=== PATIENT | female | born 1995 | race Two or more races ===

== ENCOUNTER 2024-11-12 03:01 | Emergency (ER) | payer MEDICAID, OTHER ==
[~2024-11-12] VITALS: Ht 165.1 cm; Wt 96.4 kg
[2024-11-12 03:03] VITALS: BP 153/93; PULSE 61; RESP 20; TEMP 97.9; O2SAT 97
--- NOTE | 2024-11-12 03:38 | ED.PDOC ---
History of Present Illness HPI Comments 29-year-old female who came to ER due to worening shortness of breath. Patient is a approximately 7 months . She does have history of GERD. States for the past 3 days, she has been experiencing leg swelling, runny nose, cough, throat and chest discomfort and shortness of breath. She reports s hortness of breath, difficulty taking a deep breath has been ongoing for several weeks. Noted symptoms worsens during supine position. Yesterday, symptoms persisted, now associated with bilateral lower extremity swelling. Patient denies any abdominal pain or vaginal bleeding. Patient is saturating 97% on room air. REVIEW OF SYSTEMS: General: No fever, no chills, or fatigue HEENT: (+) sore throat, no earache, (+) congestion, no neck pain. Cardiac: No chest pain. No palpitations. Lungs: (+) shortness of breath, (+) cough. GI: No nausea, no vomiting, no diarrhea, no constipation, no abdominal pain : No dysuria, frequency, or urgency. No hematuria. Musculoskeletal: No joint pain , no joint swelling, no extremity edema. Skin: No rash, no itching. Neuro: No headache, no dizziness, no weakness PHYSICAL EXAM: General: Awake, alert and oriented. No acute distress. Skin: Skin in warm, dry and intact. Appropriate color for ethnicity. HEENT: The head is normocephalic and atraumatic. Conjunctivae are clear without exudates or hemorrhage. Sclera is non-icteric. EOM are intact. No signs of nystagmus. Eyelids are normal in appearance without swelling or lesions. Oral mucosa is pink and moist Neck: The neck is supple with normal range of motion. No JVD. Cardiac: Heart rate and rhythm are normal. No murmurs, gallops, or rubs are auscultated. Respiratory: No signs of respiratory distress. Lung sounds are clear in all lobes bilaterally without rales, rhonchi, or wheezes. Abdominal: Abdomen is gravid Extremities: Upper and lower extremities are atraumatic in appearance without deformity or edema. Neurological: The patient is awake, alert and oriented to person, place, and time with normal speech. Speech is clear. There is no facial asymmetry. Normal gait Psychiatric: Appropriate mood and affect. Good judgement and insight. Chief Complaint: Shortness of Breath Time Seen by MD: 03:37 Allergies: Coded Allergies: NO KNOWN ALLERGIES (Unverified , 11/12/24) Information Source: Patient Mode of Arrival: Ambulatory Severity: Moderate Timing: Hours Duration: Intermittent Past Medical History PAST MEDICAL HISTORY: GERD Surgical History: Denies all surgeries 1 Para 0 Family History Family History: Reviewed,noncontributory to illness Social History Smoker: Non-Smoker Alcohol: Denies ETOH Use Drugs: Denies Drug Use Lives In: Home Was a procedure done? Was a procedure done?: No Differential Dx Considerations may include: Differential diagnoses considered includebut arenot limited to acute Bronc hitis, Asthma, COPD, Pneumothorax, PE, CHF, Pulmonary HTN, Anemia, CO Poisoning, Methemoglobinemia, Hyperventilation, Metabolic Acidosis, Pulmonary Edema, Pneumonia, ACS, Pericardial Tamponade, Anxiety, other X-Ray, Labs, Meds, VS Vital Signs Date Time Temp Pulse Resp B/P (MAP) Pulse Ox O2 Delivery O2 Flow Rate FiO2 11/12/24 03:03 97.9 61 20 153/93 97 97.9 Time of 1ST Reevaluation: 03:33 Reevaluation 1ST: Unchanged Patient Education/Counseling: Need For Follow Up Family Education/Counseling: Need For Follow Up SEPSIS Sepsis Screen Date sepsis recognized/suspect: Nov 12, 2024 Time Sepsis recognized/suspect: 0308 Recent Procedure: No On Antibiotic Therapy: No Respiratory Rate >20: No Heart Rate >90: No Temp<36 C (96.8 F) or >38.3 C: No SBP <90 or MAP <65 mmHG: No New Acute Mental Status Change: No Is the patient on CPAP, BIPAP,: No Vital Signs Date Time Temp Pulse Resp B/P (MAP) Pulse Ox O2 Delivery O2 Flow Rate FiO2 11/12/24 03:03 97.9 61 20 153/93 97 97.9 Departure 1 Departure Time of Disposition: 03:58 Impression: Primary Impression: Shortness of breath Additional Impression: Left against medical advice Disposition: 07 LEFT AGAINST MEDICAL ADVICE Condition: Other Comments MDM: Discussed with patient plan for testing for possible serious etiology of her symptoms and heart tones. At this time patient states she does not want to wait for further testing, she will return if symptoms worsen. Despite our efforts, patient has decided to leave against medical advice. The patient has a normal mental status and full decisional capacity. Patient has been informed of the benefits of staying such as further diagnosis and treatment of possible serious etiology of the symptoms, and the risks of leaving such as , chronic pain, permanent disability or other serious adverse events which might be attributed to leaving. The patient displays clear understanding of these benefits and risks and chooses to leave. The patient is been informed also that they may return here at any time if they change their mind or need to further concerns or questions has been referred to their local medical physician for follow up JOSÉ. Critical Care Note Critical Care Time?: No Stability Stability form required: No Heart Score Heart Score: Heart Score Response (Comments) Value History N/A 0 EKG N/A 0 Age N/A 0 Risk Factors N/A 0 Troponin N/A 0 Total 0 I personally scribed for TIM NOLAN MD ([email or web address]) on 11/12/24 at 03:38. Electronically submitted by Dawood Borjas ([email or web address]). TIM NOLAN MD Nov 12, 2024 03:38
== END 2024-11-12 03:27 | disposition left against medical advice (07) ==
LOC: ER 03:01
DX: O26.893 Other specified pregnancy related conditions, third trimester (principal); K21.9 Gastro-esophageal reflux disease without esophagitis; Z3A.30 30 weeks gestation of pregnancy

== ENCOUNTER 2024-11-16 11:19 | Emergency (ER) | payer MEDICAID ==
[~2024-11-16] VITALS: Ht 157.5 cm; Wt 113.6 kg
--- NOTE | 2024-11-16 11:28 | ED.PDOC ---
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 Per EMS, patient had a witnessed seizure by her boyfriend while at home that boyfriend described as Tonic-Clonic and lasting approximately 3 minutes. Patient has no history of seizures according to boyfriend. Patient is alert, but altered according to EMS. Patient is also 7 months , . Patient does have some oral trauma and had incontinence with one episode of vomiting. Patient was also hypertensive at 170 systolic. Otherwise no fall or trauma reported PMHx: GERD PSHx: None HPI: Poor Historian. REVIEW OF SYSTEMS: CONSTITUTIONAL: Denies acute: fever, diaphoresis, chills, HEAD: Denies acute: photophobia Eyes: Denies acute: Double vision, vision loss, eye pain, eye discharge. EARS: Denies acute: tinnitus, hearing loss, ear discharge, ear pain, THROAT: Denies acute: sore throat, swelling, difficulty swallowing , pain with swallowi ng, change in voice. NECK: Denies acute: neck pain, neck swelling, stiff neck. HEART: Denies acute : chest pain, palpitations, LUNGS: Denies acute: SOB, wheezing, cough, hemoptysis ABDOMEN: Denies acute: abdominal pain, diarrhea, melena , hematemesis, hematochezia SKIN: Denies acute: rash, redness, lesions, itchiness. EXTREMITIES: Denies acute: calf pain, numbness, tingling, weakness, denies pain in extremity. Denies acute: Low back pain. Neuro: Denies acute: focal neurological deficit, motor or sensory focal neurological deficit, tremors, , dizziness, change in mental status, loss of bowel or bladder function, cauda equina like symptoms. : Denies acute: dysuria, hematuria, flank pain, increase in urinary frequency. PSYCH: Denies acute: hallucination, suicidal ideation, homicidal ideation. FEMALE: Denies acute: abnormal vaginal bleeding, foul odor, unusual discharge. PHYSICAL EXAM: General: ----[id number]----acute distress, awake and alert. Head: normocephalic, atraumatic. Neck: supple, trachea is midline, no swelling. Throat: Normal phonation. Eyes:, no erythema, no purulent discharge, no proptosis, no icterus. Heart: regular rate, regular rhythm, no significant murmur appreciated. Lungs: no apparent respiratory distress, Able to speak in full sentences. No wheezing, no rhonchi, no crackles. No stridors Clear to auscultation bilaterally. Abdomen: non tender to palpation, non distended, soft, no guarding, no rebound, + bowel sounds. Neuro: Awake, Alert, oriented to name, self, situation, follows commands GCS=15. Speech is normal. Skin: no petechia, no purpura, no cyanosis, non-pale, not jaundice. Lower extremities: --no - Pitting edema no deformity, no focal swelling, no calf TTP. Makes eye contact. moves all four extremities. Face: no apparent facial droop. PERRLA, EOM-I CN 2-12 are grossly intact, No nystagmus. No nuchal rigidity, Kernig's sign, Brudzinski's sign, no meningeal signs. ED COURSE: DISCLAIMER: This medical document was created using an electronic medical record system with voice recognition software and computerized dictation system. Although this document has been carefully reviewed, there might still be some phonetic and typographical errors. Occasional wrong-word or "sound-alike" substitutions may have occurred due to the inherent limitations of voice recognition software. These areas are purely typographical due to imperfections of the software programs and do not reflect any compromise in the patient's medical care. Please read the chart carefully and recognize, using context, where these substitutions have occurred. Time Seen by MD: 11:20 Reviewed Notes: Data Systems Analyst Notes, Medications, Allergies Allergies: Coded Allergies: NO KNOWN ALLERGIES (Unverified , 11/12/24) Information Source: Patient, Emergency Med Personnel Past Medical History PAST MEDICAL HISTORY: GERD Surgical History: Denies all surgeries Family History Family History: Reviewed,noncontributory to illness Social History Smoker: Non-Smoker Alcohol: Denies ETOH Use Drugs: Denies Drug Use Lives In: Home Was a procedure done? 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 In the particular setting of this patient, eclampsia, preeclampsia, intracranial mass, sepsis,), N/A X-Ray, Labs, Meds, VS Vital Signs Date Time Temp Pulse Resp B/P (MAP) Pulse Ox O2 Delivery O2 Flow Rate FiO2 11/16/24 13:14 98.0 71 16 130/88 (102) 98 98.0 11/16/24 13:13 74 11/16/24 12:00 Room Air* 0 21 11/16/24 12:00 71 17 161/99 (119) 97 11/16/24 11:47 161/99 11/16/24 11:23 98.8 76 18 170/68 99 98.8 Lab Test 11/16/24 13:15 11/16/24 12:05 Range/Units Urine Color Yellow Yellow Urine Clarity Turbid H Clear Urine pH 6.5 5.0-9.0 Urine Specific Lolo 1.044 H 1.001-1.035 Urine Protein 3+ H Negative Urine Ketones 1+ H Negative Urine Blood 2+ H Negative /uL Urine Nitrite Negative Negative Urine Bilirubin Negative Negative Urine Urobilinogen Normal Negative mg/dL Urine Leukocyte Esterase Negative Negative /uL Urine RBC 19 0 - 4 /hpf Urine Microscopic WBC 11 H 0-5 /HPF Urine Squamous Epithelial Cells Few <5 /hpf Urine Bacteria None seen None Seen /hpf Urine Mucus Few None Seen Urine Creatinine 225.93 H 30.0-125.0 mg/dL Urine Protein/Creatinine Ratio 11.07 Urine Glucose Normal Normal mg/dL Urine Total Protein > 2500.0 H 1-14 mg/dL Urine Opiates Screen Neg NEGATIVE Urine Fentanyl Screen Neg NEGATIVE Urine Barbiturates Screen Neg NEGATIVE Urine Phencyclidine Screen Neg NEGATIVE Urine Amphetamines Screen Neg NEGATIVE Urine Benzodiazepines Screen Neg NEGATIVE Urine Cocaine Screen Neg NEGATIVE Urine Cannabinoids Screen Neg NEGATIVE White Blood Count 9.5 4.4-10.8 10^3/uL Red Blood Count 4.38 4.0-5.20 10^6/uL Hemoglobin 13.0 12.2-16.2 g/dL Hematocrit 37.5 36.0-46.0 % Mean Corpuscular Volume 85.5 80.0-100.0 fL Mean Corpuscular Hemoglobin 29.8 28.0-32.0 pg Mean Corpuscular Hemoglobin Concent 34.8 32.0-36.0 g/dL Red Cell Distribution Width 13.2 11.8-14.3 % Platelet Count 190 140-450 10^3/uL Mean Platelet Volume 9.3 6.9-10.8 fL Neutrophils (%) (Auto) 87.2 H 37.0-80.0 % Lymphocytes (%) (Auto) 8.3 L 10.0-50.0 % Monocytes (%) (Auto) 4.2 0.0-12.0 % Eosinophils (%) (Auto) 0.2 0.0-7.0 % Basophils (%) (Auto) 0.1 0.0-2.0 % Neutrophils # (Auto) 8.3 1.6-8.6 10 ^3/uL Lymphocytes # (Auto) 0.8 0.4-5.4 10 ^3/uL Monocytes # (Auto) 0.4 0-1.3 10 ^3/uL Eosinophils # (Auto) 0 0-0.8 10 ^3/uL Basophils # (Auto) 0 0-0.2 10 ^3/uL Nucleated Red Blood Cells 0.0 % Prothrombin Time 10.0 9.3-11.8 sec Prothrombin Time INR 0.94 0.9-1.15 Activated Partial Thromboplast Time 24.8 24.5-34.5 SEC Fibrinogen 671 H 177-375 mg/dL D-Dimer, Quantitative 1.50 H 0.0-0.49 mg/L FEU Sodium Level 139 136-145 mmol/L Potassium Level 4.0 3.5-5.1 mmol/L Chloride Level 108 H 98-107 mmol/L Carbon Dioxide Level 20 20-31 mmol/L Anion Gap 11 5-15 Blood Urea Nitrogen 7 L 9-23 mg/dL Creatinine 0.81 0.550-1.02 mg/dL Glomerular Filtration Rate Calc 102 >90 mL/min BUN/Creatinine Ratio 8.6 L 10.0-20.0 Serum Glucose 84 74-106 mg/dL Lactic Acid Level 2.4 *H 0.4-2.0 mmol/L Uric Acid 8.1 H 3.1-7.8 mg/dL Calcium Level 8.9 8.7-10.4 mg/dL Magnesium Level 2.0 1.6-2.6 mg/dL Total Bilirubin 0.2 0.2-1.0 mg/dL Aspartate Amino Transferase (AST) 27 13-40 U/L Alanine Aminotransferase (ALT) 24 7-40 U/L Alkaline Phosphatase 102 46-116 U/L Lactate Dehydrogenase 229 120-246 U/L Troponin I High Sensitivity 17 </=34 ng/L Total Protein 5.6 L 5.7-8.2 g/dL Albumin 3.3 3.2-4.8 g/dL Beta HCG, Quantitative 46788.7 H 1.5-4.2 mIU/mL [place] [id number] Ph: [phone] DIAGNOSTIC IMAGING Diagnostic Imaging Report : [id number] Signed PATIENT: CELESTE SPAIN ACCT: [id number] UNIT: [id number] : 1995 LOC: ER ROOM / BED: / AGE / SEX: 29 / F ADM STATUS: REG ER SERVICE 1212 ORDERING PHYSICIAN: JAROD FISCHER CNM PROCEDURE(s): OBUS - OB ULTRASOUND COMP GTR 14 WKS REASON: eclampsia ORDER NUMBER(s): [id number], ACCESSION NUMBER(s): [id number] LIMITED OB ULTRASOUND > 14 WKS: HISTORY: eclampsia TECHNIQUE: Multiple real-time grayscale images of the gravid uterus with duplex Doppler color flow and M-mode spectral analysis. TRANSDUCER: Transabdominal COMPARISON: None FINDINGS: IUP single live fetus at 28 weeks and 3 days based on composite averages of the BPD, head circumference, abdominal circumference and femur length Estimated weight 1106 grams heart rate 138 beats per minute JEAN PAUL is subjectively within normal limits. Deepest pocket measures 6.4 cm. Cervix is closed and measures 3.4 cm. Cephalic Presentation AnteriorPlacenta without previa or abruption. IMPRESSION: IUP single live fetus at 28 weeks and 3 days AUA corresponding to an JAYLON of 02/05/2025 ATED BY: ABIODUN ARREAGA MD DICTATED DATE/TIME: 11/16/24 1322 SIGNED BY: ABIODUN ARREAGA MD SIGNED DATE/TIME: 11/16/24 1322 CC: Time of 1ST Reevaluation: 12:07 (Case discussed with the OB Gyne doctor on-call at this time. They said they are coming to evaluate the patient immediately. Dr. Thapa. ) Reevaluation 1ST: Unchanged Time of 2ND Reevaluation: 12:34 (The [facility]ne team came and evaluated the patient at bedside. They recommend transfer the patient to higher level of care since we do not have any NICU. They also ordered a bunch of test and orders. Please see their consultation notes. Dr. Colindres case was discussed with the ER team at higher level of care at [facility] (HPI, physical exam, labs and diagnostic tests that were available at the time of disposition, ED course, treatment plan) on the phone. They agreed to accept the patient to their service --- Francois. ) Patient Education/Counseling: Diagnosis, Treatment Family Education/Counseling: No Family Present Comments MDM: patient presented with the above HPI.-hypertensive headache new onset seizure eclampsia-----workup was initiated. patient was found with the above mentioned diagnosis. Patient was evaluated immediately upon arrival. the following medications were ordered: please refer to order lists of meds and tests obtained by myself Dr. Gagnon. Patient ED course and VS have been stabilized. Patient has been reassessed in the ED and remained in a stable condition. Pertinent incidental findings were discussed with the patient and/or family. Patient/family voices understanding and is agreeable with plan. Patient has been observed in the ED adequate length of time to insure improvement/stability. OB Gyne was consulted immediately. They came to bedside. Please see their consultation notes. They recommended transfer the patient to higher level of care. Almost all the labs and ultrasound were not available at the time of transfer the patient by [facility] air flight to [facility]. Patient was transferred prior to obtaining CT scan of the head so we do not cause any delay of care. We do not have a NICU in our facility. Patient was transferred with a magnesium drip on board running during the flight. Escalation of care considered: Consideration of escalation to observation or admission All the reports of any imaging studies that were ordered by myself were reviewed by myself. Departure 1 Departure Time of Disposition: 12:12 Impression: Primary Impression: Eclampsia Disposition: 02 SHORT TERM HOSPITAL Admit to: Tele Condition: Critical Discharged With: Self Critical Care Note Critical Care Time?: Yes (1 hr-critical care time only) I personally scribed for ARMAAN GAGNON DO ([email or web address]) on 11/16/24 at 11:28. Electronically submitted by Florentin Martínez ([email or web address]). ARMAAN GAGNON DO Nov 16, 2024 11:28
[2024-11-16] MEDS ORDERED: MAGNESIUM SULFATE 1GM/100ML 100 ML IV ONE (11:30)
[2024-11-16] MEDS: ONDANSETRON HCL 4 MG/2 ML VIAL IV ONE (11:46)
[2024-11-16] MEDS: hydrALAZINE HCL 20 MG/ML VL IV PRN (11:47)
[2024-11-16] MEDS: MAGNESIUM SULFATE 1GM/100ML 100 ML IV ONE (11:47)
[2024-11-16] MEDS ORDERED: MAGNESIUM SULFATE 100 ML IV ONE (12:15)
[2024-11-16] MEDS ORDERED: MAGNESIUM SULFATE 40MG/ML 1,000 ML IV SCH (12:15)
[2024-11-16] MEDS ORDERED: BETAMETHASONE ACET (30mg/5ml) 5ml Vial 6mg/ml IM ONE (12:15)
[2024-11-16] MEDS ORDERED: LACTATED RINGER'S 1,000 ML IV SCH (12:15)
[2024-11-16 12:44] LABS: Hematocrit 37.5 % (36.0-46.0); Hemoglobin 13.0 g/dL (12.2-16.2); Mean Corpuscular Hemoglobin 29.8 pg (28.0-32.0); Mean Corpuscular Volume 85.5 fL (80.0-100.0); Nucleated Red Blood Cells % 0.0 %
[2024-11-16 12:56] LABS: Alanine Aminotransferase 24 U/L (7-40); Albumin 3.3 g/dL (3.2-4.8); Alkaline Phosphatase 102 U/L (46-116); Anion Gap 11 (5-15); BUN/Creatinine Ratio 8.6 (10.0-20.0); Calcium 8.9 mg/dL (8.7-10.4); Carbon Dioxide 20 mmol/L (20-31); Glucose 84 mg/dL (74-106); Magnesium 2.0 mg/dL (1.6-2.6); Potassium 4.0 mmol/L (3.5-5.1); Sodium 139 mmol/L (136-145)
[2024-11-16 12:57] LABS: Blood Urea Nitrogen 7 mg/dL (9-23); Chloride 108 mmol/L (98-107); INR 0.94 (0.9-1.15); Partial Thromboplastin Time 24.8 SEC (24.5-34.5); Prothrombin Time 10.0 sec (9.3-11.8)
[2024-11-16 12:58] LABS: Bilirubin, Total 0.2 mg/dL (0.2-1.0); Total Protein 5.6 g/dL (5.7-8.2)
[2024-11-16 13:02] LABS: Lactic Acid w/Reflex 2.4 mmol/L (0.4-2.0)
[2024-11-16 13:14] VITALS: BP 130/88; PULSE 71; RESP 16; TEMP 98; O2SAT 98
--- NOTE | 2024-11-16 13:25 | DVH ---
LIMITED OB ULTRASOUND > 14 WKS: HISTORY: eclampsia TECHNIQUE: Multiple real-time grayscale images of the gravid uterus with duplex Doppler color flow an d M-mode spectral analysis. TRANSDUCER: Transabdominal COMPARISON: None FINDINGS: IUP single live fetus at 28 weeks and 3 days based on composite averages of the BPD, head circumferen ce, abdominal circumference and femur length Estimated weight 1106 grams heart rate 138 beats per minute JEAN PAUL is subjectively within normal limits. Deepest pocket measures 6.4 cm. Cervix is closed and measures 3.4 cm. Cephalic Presentation AnteriorPlacenta without previa or abruption. IMPRESSION: IUP single live fetus at 28 weeks and 3 days AUA corresponding to an JAYLON of 02/05/2025
[2024-11-16 15:03] LABS: Urine Protein, UAD 3+ (Negative)
--- NOTE | 2024-11-16 15:18 | DVHINCON2 ---
Date of service: Nov 16, 2024 Referring Physician er physician Reason for Consultation eclampsia History of Present Illness pt presents to er with a hx of 2min tonic clonic seizure per boy friend. she has care [facility] and denies having any ob problems ,she is with edc of 10-31 approx 28wks preg .she denies any vag bleeding or rom. ob sono in er reveals vx,single gest with adeq fld and 1080 grams in efw.pt is alert and appropriate at the time of this consultation answering questions approp.pt was started on mg and given hydralzine x2 her cbc is normal ,cmp and upc are pending.dr darnell contacted [facility] and got acceptance to transfer pt while dr schwab wanted all labs back before accepting the transfer.pt and express desire to be transferred to [facility] Past Medical History none Past Surgical History none Family History na Social History primgravid Allergies: Coded Allergies: NO KNOWN ALLERGIES (Unverified , 11/12/24) Current Medications Current Medications Medications (Trade) Dose Ordered Sig/Hailey Route PRN Reason Start Time Stop Time Status Last Admin Hydralazine HCl (Apresoline Injection) 5 mg Q20MP PRN IV SBP>160 or DBP>105 11/16/24 11:45 11/16/24 11:47 Lactated Ringer's 1,000 ml @ 75 mls/hr [id number] IV 11/16/24 12:15 Magnesium Sulfate 1,000 ml @ 50 mls/hr Q20H IV 11/16/24 12:15 Review of Systems Constitutional: no fever, chill, weight loss HEENT: no eye pain, no hearing loss, no oral lesion, no scleral icterus Heart: no chest pain, no chest pressure Lung: no cough, no dyspnea with exertion Abdomen: see HPI : no pain with urination, normal appearing urine Musculoskeletal: no joint pain, no muscle pain Neurological: no seizure, no loss of sensation, no weakness in extremities Pysch: no depression, no anxiety Derm: no rash, no jaundice Vital Signs Vital Signs Date Time Temp Pulse Resp B/P (MAP) Pulse Ox O2 Delivery O2 Flow Rate FiO2 11/16/24 13:14 98.0 71 16 130/88 (102) 98 98.0 11/16/24 12:00 Room Air* 0 21 Physical Exam alert and oriented x3 HEENT: [nl] NECK: [nl] CARDIAC: [rrr] PULMONARY: [cta] ABDOMEN: [gravid,nt ,not firm,pos fh] NEURO: [nl pellvic -no bleeding,cx closed,no dc ] Labs/Diagnostic Data Labs Test 11/16/24 13:15 11/16/24 12:05 Range/Units White Blood Count 9.5 4.4-10.8 10^3/uL Red Blood Count 4.38 4.0-5.20 10^6/uL Hemoglobin 13.0 12.2-16.2 g/dL Hematocrit 37.5 36.0-46.0 % Mean Corpuscular Volume 85.5 80.0-100.0 fL Mean Corpuscular Hemoglobin 29.8 28.0-32.0 pg Mean Corpuscular Hemoglobin Concent 34.8 32.0-36.0 g/dL Red Cell Distribution Width 13.2 11.8-14.3 % Platelet Count 190 140-450 10^3/uL Mean Platelet Volume 9.3 6.9-10.8 fL Neutrophils (%) (Auto) 87.2 H 37.0-80.0 % Lymphocytes (%) (Auto) 8.3 L 10.0-50.0 % Monocytes (%) (Auto) 4.2 0.0-12.0 % Eosinophils (%) (Auto) 0.2 0.0-7.0 % Basophils (%) (Auto) 0.1 0.0-2.0 % Neutrophils # (Auto) 8.3 1.6-8.6 10 ^3/uL Lymphocytes # (Auto) 0.8 0.4-5.4 10 ^3/uL Monocytes # (Auto) 0.4 0-1.3 10 ^3/uL Eosinophils # (Auto) 0 0-0.8 10 ^3/uL Basophils # (Auto) 0 0-0.2 10 ^3/uL Nucleated Red Blood Cells 0.0 % Prothrombin Time 10.0 9.3-11.8 sec Prothrombin Time INR 0.94 0.9-1.15 Activated Partial Thromboplast Time 24.8 24.5-34.5 SEC Fibrinogen 671 H 177-375 mg/dL D-Dimer, Quantitative 1.50 H 0.0-0.49 mg/L FEU Sodium Level 139 136-145 mmol/L Potassium Level 4.0 3.5-5.1 mmol/L Chloride Level 108 H 98-107 mmol/L Carbon Dioxide Level 20 20-31 mmol/L Anion Gap 11 5-15 Blood Urea Nitrogen 7 L 9-23 mg/dL Creatinine 0.81 0.550-1.02 mg/dL Glomerular Filtration Rate Calc 102 >90 mL/min BUN/Creatinine Ratio 8.6 L 10.0-20.0 Serum Glucose 84 74-106 mg/dL Lactic Acid Level 2.4 *H 0.4-2.0 mmol/L Uric Acid 8.1 H 3.1-7.8 mg/dL Calcium Level 8.9 8.7-10.4 mg/dL Magnesium Level 2.0 1.6-2.6 mg/dL Total Bilirubin 0.2 0.2-1.0 mg/dL Aspartate Amino Transferase (AST) 27 13-40 U/L Alanine Aminotransferase (ALT) 24 7-40 U/L Alkaline Phosphatase 102 46-116 U/L Lactate Dehydrogenase 229 120-246 U/L Troponin I High Sensitivity 17 </=34 ng/L Total Protein 5.6 L 5.7-8.2 g/dL Albumin 3.3 3.2-4.8 g/dL Beta HCG, Quantitative 41136.7 H 1.5-4.2 mIU/mL Primary Diagnosis eclampsia currently stable on mg no further seizures also bp is controlled 2' Diagnosis/Comorbidities iup at 28wks Plan cont with mgso4 celestone given and hydralazine given x2 labs not back at 3:15 no cmp result back or upc . i spoke to dr schwab for possible transfer since pt and wanted to be at [facility] but dr schwab wanted result of all labs before accepting transfer meanwhile dr maxwell contatcted [facility] and transferred her to [facility] via air . Plan discussed with: Patient Visit Coding OBGYN Date of Service: Nov 16, 2024 Billing Provider: OSMEL GUAJARDO DO HEALTHCARE ARCHITECT Common Visit Codes: [id number] INP/OBS CARE (HIGH), CONSULTATION ONLY HEALTHCARE ARCHITECT Consultation Codes: [id number] CONSULT <110MIN OSMEL GUAJARDO DO Nov 16, 2024 15:18
[2024-11-16 15:19] LABS: Amphetamine Screen, Urine Neg (NEGATIVE); Barbiturate Scree,Urine Neg (NEGATIVE); Benzodiazephine Screen, Urine Neg (NEGATIVE); Cannabinoid Screen, Urine Neg (NEGATIVE); Cocaine Screen, Urine Neg (NEGATIVE); Opiate Scree,Urine Neg (NEGATIVE); Phencyclidine Screen, Urine Neg (NEGATIVE); Protein, Urine > 2500.0 mg/dL (1-14)
== END 2024-11-16 13:34 | disposition short-term general hospital (02) ==
LOC: EDBD 11:19 → ER 11:19 → EDSEX 11:19 → ER 13:34
DX: O15.9 Eclampsia, unspecified as to time period (principal); O26.893 Other specified pregnancy related conditions, third trimester; R56.9 Unspecified convulsions; O21.9 Vomiting of pregnancy, unspecified; K21.9 Gastro-esophageal reflux disease without esophagitis; Z3A.28 28 weeks gestation of pregnancy
CPT/HCPCS: 36415; 76805; 80053; 80307; 81001; 82570; 82947; 83605; 83615; 83735; 84156; 84484; 84550; 84702; 85025; 85379; 85384; 85610; 85730; 96365; 96375; 99285; J0360; J0702; J2405; J3475